=== PATIENT | female | born 1955 | race Caucasian/White ===

== ENCOUNTER → 2018-03-06 | Outpatient (CLI) | payer BC | LOC: M WHC 10:09 | DX: Z12.31 Encounter for screening mammogram for malignant neoplasm of breast (principal); N60.32 Fibrosclerosis of left breast; N60.31 Fibrosclerosis of right breast | CPT/HCPCS: 77067 ==

== ENCOUNTER → 2018-03-06 | Outpatient (REF) | payer BC ==
[2018-03-08 14:17] LABS: HPV HYBRID CAPTURE II Negative (Negative)
== END ==
LOC: M SFHCWAGY 11:57
DX: Z12.4 Encounter for screening for malignant neoplasm of cervix (principal)
CPT/HCPCS: G0123